=== PATIENT | male | born 1985 | race Asian ===

== ENCOUNTER 2021-10-22 16:56 | Emergency (ER) | payer OTHER ==
[~2021-10-22] VITALS: Ht 177.8 cm; Wt 72.7 kg
[2021-10-22 18:07] VITALS: TEMP 98.3
[2021-10-22 18:31] LABS: COLLECTION METHOD CLEAN CATCH
[2021-10-22 18:35] LABS: BASO # 0.1 K/mm3 (0.0-0.2); BASO % 0.8 % (0.0-2.0); EOS # 0.1 K/mm3 (0.0-0.7); EOS % 1.8 % (0.0-4.0); GRAN # 5.4 K/mm3 (1.4-6.5); GRAN % 68.6 % (42.2-75.2); LYMPH # 1.5 K/mm3 (1.2-3.4); LYMPH % 19.2 % (20.0-51.0); MEAN CELL VOLUME 85 fl (80.0-100.0); MEAN CORPUSCULAR HEMOGLOBIN 29 pg (27-31); MEAN CORPUSCULAR HGB CONC 34 g/dl (33.0-37.0); MEAN PLATELET VOLUME 9.4 fl (7.4-10.4); MONO # 0.7 K/mm3 (0.1-0.6); MONO % 9.2 % (1.7-9.3); PLATELET COUNT 322 K/mm3 (130-400); RED BLOOD COUNT 5.18 M/mm3 (4.20-5.60); REDCELL DISTRIBUTION WIDTH-CV 12.8 % (11.5-14.5)
[2021-10-22 18:40] LABS: URINE APPEARANCE Clear (CLEAR/HAZY); URINE COLOR OTHER (YELLOW); URINE GLUCOSE Negative (NEGATIVE); URINE KETONE Negative (NEGATIVE); URINE NITRATE Negative (NEGATIVE); URINE PROTEIN(semi-quant) Negative (NEGATIVE)
[2021-10-22 18:41] LABS: URINE BLOOD TRACE-LYSED (NEGATIVE)
[2021-10-22 18:43] LABS: SQUAMOUS EPITHELIAL None Seen /hpf (0-10); URINE BACTERIA None Seen /hpf (NONE SEEN); URINE RBC 0-2 /hpf (0-2)
[2021-10-22 18:55] LABS: ALBUMIN 4.3 gm/dL (3.5-5.0); BILIRUBIN,TOTAL 8.9 mg/dL (0.2-1.2); CALCIUM 9.5 mg/dL (8.4-10.2); CREATININE, serum 0.99 mg/dL (0.72-1.25); POTASSIUM 3.8 mmol/L (3.5-4.5); TOTAL PROTEIN 7.4 gm/dL (6.2-8.1)
[2021-10-22 23:20] VITALS: BP 128/78; PULSE 68
== END 2021-10-22 23:20 | disposition short-term general hospital (02) ==
LOC: COL.ER 16:56
PROVIDERS: Emergency Medicine
DX: K80.81 Other cholelithiasis with obstruction (principal); R74.8 Abnormal levels of other serum enzymes; Z20.822 Contact with and (suspected) exposure to COVID-19
CPT/HCPCS: J2270; J2405; J7030; J7121; Q9967